=== PATIENT | female | born 2000 | race Caucasian/White ===

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

== ENCOUNTER 2022-03-12 14:21 | Emergency (ER) | payer MEDICAID ==
[2022-03-12 14:35] VITALS: BP 128/76; PULSE 81
[2022-03-12] MEDS ORDERED: diphenhydrAMINE 50 MG Cap PO ONE (15:25)
[2022-03-12 16:11] LABS: ESTIMATED GFR > 60 mL/min (>60)
[2022-03-12] MEDS ORDERED: methylPREDNISolone Sodium Succinate 125 MG/2 ML SDV IVPUSH ONE (16:50)
[2022-03-12] MEDS ORDERED: Iopamidol 612 MG/ML 100 ML Bottle IVPUSH ONE (16:54)
[2022-03-12] MEDS: Sodium Chloride 0.9% 10 ML Syringe FLUSH PRN ×2 (17:09→17:30)
[2022-03-12] MEDS ORDERED: Cephalexin 500 MG Cap PO ONE (19:36)
== END 2022-03-12 20:05 | disposition home or self-care (01) ==
LOC: JD.ED 14:21
DX: R22.0 Localized swelling, mass and lump, head (principal); Z91.011 Allergy to milk products; Z91.041 Radiographic dye allergy status
CPT/HCPCS: 36415; 70487; 80053; 85025; 86140; 96374; 99284; A9270; J2930; J3490; Q0163; Q9967